=== PATIENT | male | born 1970 | race Asian ===

== ENCOUNTER 2019-10-08 06:27 | Inpatient (IN) | payer SELFPAY ==
[2019-10-08] VITALS (17 sets, daily range): BP systolic 92–132; BP diastolic 57–95; PULSE 60–82; RESP 12–17; TEMP 36.3–36.8; O2SAT 97–99; BMI 20.6
--- NOTE | ~2019-10-08 | XR_ITS ---
EXAMINATION: XR chest 1V portable 10/08/2019 07:38 INDICATION: Syncope. Possible seizure. PROCEDURE: AP portable chest COMPARISON: No prior studies for comparison. FINDINGS: The lungs are clear. The cardiomediastinal silhouette is within normal limits. There are no pleural effusions. There is no pneumothorax suspected. IMPRESSION: 1: NO ACUTE CARDIOPULMONARY DISEASE. Reviewed, dictated and finalized at location A.
--- NOTE | ~2019-10-08 | CT_ITS ---
EXAMINATION: CT BRAIN W/O DATE: 10/08/2019 09:31 INDICATION: Headache. Syncope. TECHNIQUE: Computed tomography (CT) of the head was performed without intravenous contrast. The dose- length product was 605.33 mGy-cm. Automated exposure control and iterative reconstruction technique w ere employed. COMPARISON: No prior studies for comparison. FINDINGS: Normal brain parenchymal volume for age. Normal garcia-white differentiation. No acute intrac ranial hemorrhage, infarction, mass or mass effect. No ventriculomegaly or midline shift. Midline sagittal images demonstrate a normal corpus callosum, c raniovertebral junction and sella turcica. Basilar cisterns are patent. Paranasal sinuses and mastoids are pneumatized. No depressed skull fractures. IMPRESSION: 1. No acute intracranial abnormality. Reviewed, dictated and finalized at location A.
--- NOTE | ~2019-10-08 | US_ITS ---
EXAMINATION: US carotid duplex BI DATE: 10/08/2019 11:52 INDICATION: Syncope. Evaluate for carotid stenosis. TECHNIQUE: Grayscale, color Doppler, and pulsed Doppler images of the cervical carotid arteries were obtained. The degree of vessel stenosis is placed in one of the following categories: normal, <50%, 5 0-69%, >=70% but less than near-occlusion, near-occlusion, or total occlusion. Note that percent sten osis relative to normal distal artery lumen diameter is indirectly measured from velocity measurement s as described by Ralph, et al. Radiology 2003; 229:340-346. Notes: Normal: Peak systolic velocity <125 centimeters/sec and no plaque <50%. Peak systolic velocity <125 ( EDV <40; ICA/CCA PSV ratio <2.0; used these factors only a tandem lesions or low cardiac output or co ntralateral disease) 50-69 %: PSV 125-230 (EDV 40-100; ratio 2-4) >= 70% but less than near occlusion: PSV greater than 230 (EDV > 100; ratio> 4.0) Near Occlusion: PSV that is variable; markedly narrowed lumen Occlusion: Absent flow on color/spectral Doppler and no lumen on garcia scale. COMPARISON: None. FINDINGS: RIGHT: The right common carotid artery (CCA) peak systolic velocity (PSV) is 79 cm/s. The right internal car otid artery (ICA) PSV is 74 cm/s. The right ICA end-diastolic velocity (EDV) is 27 cm/s. The right IC A/CCA PSV ratio is 0.9. The external carotid artery (ECA) PSV is 71 cm/s. There is antegrade flow in the right vertebral artery. LEFT: The left CCA PSV is 99 cm/s. The left ICA PSV is 60 cm/s. The left ICA EDV is 23 cm/s. The left ICA/C CA PSV ratio is 0.6. The ECA PSV is 77 cm/s. There is antegrade flow in the left vertebral artery. IMPRESSION: 1. Less than 50% stenosis in the right internal carotid artery by sonographic criteria. 2. Less than 50% stenosis in the left internal carotid artery by sonographic criteria. Reviewed, dictated and finalized at location A. IMPRESSION: 1. Less than 50% stenosis in the right internal carotid artery by sonographic c obed. 2. Less than 50% stenosis in the left internal carotid artery by sonographic ophelia smalls.
--- NOTE | ~2019-10-08 | MR_ITS ---
EXAMINATION: MR brain/brain stem wo/w con DATE: 10/09/2019 11:44 CDT INDICATION: Focal seizure. Recent syncope. Headache. TECHNIQUE: Magnetic resonance imaging (MRI) of the brain and brainstem was performed without intraven ous contrast. Sequences included sagittal and axial T1-weighted SE, axial diffusion-weighted FS SE, a xial T2*-weighted GRE, axial T2-weighted FLAIR Propeller, and axial T2-weighted Propeller. Apparent d iffusion coefficient (ADC) maps were created. COMPARISON: CT dated 10/08/2019 FINDINGS: The brain volume and ventricular system are within normal limits. The brain parenchymal si gnal intensity pattern and garcia/white matter is normal and there is no evidence of hemorrhage, space occupying masses or infarctions. There are a few scattered areas of T2/FLAIR weighted signal hyperint ensity within the white matter, within normal limits for age. The flow signal voids of the major arterial structures about the [place] and within the rupinder r dural venous sinuses appear grossly unremarkable and patent. The seventh and eighth cranial nerve complexes are normal. The mid sagittal image demonstrates a normal craniovertebral junction and rhoda us callosum. The paranasal sinuses are grossly unremarkable. No abnormal contrast enhancement was appreciated. IMPRESSION: 1: No acute intracranial abnormality. Reviewed, dictated and finalized at location A.
--- NOTE | 2019-10-08 07:25 | ECG_ITS ---
Measurements Intervals [place] Rate: 73 P: 82 HI: 164 QRS: 88 QRSD: 93 T: 59 QT: 414 QTc: 457 Interpretive Statements SINUS RHYTHM POSSIBLE LEFT ATRIAL ENLARGEMENT BASELINE WANDER- I, II BORDERLINE ECG Electronically Signed On 10-08-2019 13:10:20 CDT by Tonny Cobos D.O.
--- NOTE | 2019-10-08 07:31 | ED.GENADULT ---
HPI - General Adult General Chief complaint: Seizure Stated complaint: poss seizure Time Seen by Provider: 10/08/19 06:58 Source: EMS Limitations: language barrier (used video contact lens blocker and cutter for rose) History of Present Illness HPI narrative: This patient is a 49 yo Armenian male who presents via EMS for evaluation of syncopal episode. PAtient is alone in room . He states that he is here because he developed dizziness while he was smoking a cigarette and then he passed out. He reports mild frontal headache since his episodes. He denies any similar episodes in the past. He was just discharged from [facility] this morning after an evaluation of memory loss x 1 week. He had labs and MRI of brain performed, and he states he was told everything was fine except high blood sugar. He states he was told that his memory loss is due to his blood sugar. He was discharged with prescription of glyburide . He denies chest pain, sob, cough, abdominal pain. Related Data Home Medications Medication Instructions Recorded Confirmed No Home Medications 10/08/19 10/08/19 Allergies Allergy/AdvReac Type Severity Reaction Status Date / Time No Known Allergies Allergy Verified 10/08/19 07:08 Review of Systems Review of Systems: All systems reviewed & are unremarkable except as noted in HPI and below Constitutional: Constitutional: Denies chills and Denies fever(s) Eyes: Eyes: Denies change in vision ENT: Reports dizziness Cardiovascular: Cardiovascular: Denies chest pain and Denies radiating jaw, neck or arm pain Respiratory: Respiratory: Denies cough and Denies dyspnea Gastrointestinal: Gastrointestinal: Denies abdominal pain and Denies nausea Neurologic: Reports syncope, Reports headache(s) and Reports focal weakness [facility] Past Medical History Medical History (Updated 10/08/19 @ 19:18 by Tianna Francois MD) Discoid lupus Tobacco dependence Type 2 diabetes mellitus Surgical History Surgical History (Updated 10/08/19 @ 07:36 by Tianna Francois MD) No pertinent past surgical history Social History Social History (Updated 10/08/19 @ 15:31 by Opal Ramirez PA-C) Social History: The patient lives in [place]. Smoking packs per day: 0.5 Smoking cigarettes per day: 10.0 Smoking status: Light tobacco smoker Tobacco type: cigarettes Second hand tobacco smoke exposure: No Additional smoking assessment comments: UNABLE TO TELL HOW LONG PT HAS BEEN SMOKING Alcohol intake: never Substance use: never Spiritual care concerns: No Exam Narrative: Exam Narrative: GENERAL: Well-appearing, well-nourished, and in no acute distress. HEAD: Normocephalic, atraumatic EYES: PERRLA and EOMI, conjunctiva clear without discharge EARS: TM's clear bilaterally without erythema or dullness NOSE: Nares clear, no rhinorrhea or epistaxis THROAT:Mucous membranes moist, Oropharynx normal without erythema, exudate, peritonsillar swelling or fluctuance NECK: Supple, without lymphadenopathy or mass RESPIRATORY: No respiratory distress, Airway patent, Respirations non-labored, Clear to auscultation without rales, rhonchi or wheeze HEART: Regular rate and rhythm. No murmur heard. Normal peripheral pulses. ABDOMEN: Soft, nontender, nondistended, normal active bowel sounds. No masses. No rebound or guarding, No organomegaly. EXTREMITIES: No edema, normal strength with full range of motion. SKIN: Warm, dry, normal color without rash NEURO: Alert and oriented x3. CN 2-12 grossly intact. No focal deficits. PSYCH: Normal mood and affect. Course Reevaluation(s) Reevaluation #1: the nurse and I atempted to ambulate patient, when he stood up and appeared confused. His right arm was reaching and twitching. This resolved after he laid down. Date: 10/08/19 Time: 10:57 Consultations Consultation #1: I Discussed case with Dr. Banda of hospitalist service who accepts patient. He is agreeable with giving patie
[2019-10-08] MEDS: LACTATED RINGERS 1,000 ML 999 ML IV CONT ×2 (07:44→10:02)
[2019-10-08 07:47] LABS: Basophils Percent Auto 0.4 % (0.2-1.2); Eosinophils Percent Auto 0.2 % (0-4.4); Hematocrit 43.7 % (42.0-52.0); Hemoglobin 14.9 g/dL (14.0-18.0); Immature Granulocyte Absolute 0.03 K/mm3 (0.00-0.031); Immature Granulocyte Percent A 0.3 % (0-0.5); Lymphocytes Absolute Auto 1.65 K/mm3 (0.9-3.2); Mean Corpuscular HGB Conc 34.1 g/dl (32-36); Mean Corpuscular Hemoglobin 30.5 pg (26-34); Mean Corpuscular Volume 89.4 fl (80-100); Mean Platelet Volume 12.1 fl (7.4-10.4); Monocytes Absolute Auto 0.5 K/mm3 (0.1-0.6); Monocytes Percent Auto 4.6 % (2.6-8.5); Neutrophils Absolute Auto 8.1 K/mm3 (1.3-6.7); Neutrophils Percent Auto 78.5 % (45.5-73.1); Platelet Count Result 158 k/mm3 (150-375); Red Blood Count 4.89 M/mm3 (4.6-6.20); Red Cell Distribution Width 11.8 % (11.5-14.5); White Blood Count 10.3 K/mm3 (4.5-10.0)
[2019-10-08 07:52] LABS: Glucose Point of Care 477 (65-105)
[2019-10-08 07:57] LABS: INR 0.9; Prothrombin Time 12.2 Seconds (11.1-14.7)
[2019-10-08 07:58] LABS: Partial Thromboplastin Time 24.7 SECONDS (22.3-36.8)
--- NOTE | 2019-10-08 08:00 | PC.NURSE ---
Faxed [facility] medical records at this time. Awaiting fax of results from 10/07/2019 visit.
[2019-10-08 08:01] LABS: D Dimer 0.33 ug/mL (<0.48)
[2019-10-08 08:04] LABS: Ethanol < 10 mg/dL (<10)
[2019-10-08 08:05] LABS: Alanine Aminotransferase 35 U/L (4-50); Alkaline Phosphatase 105 U/L (38-126); Aspartate Amino Transferase 27 U/L (17-59); Bilirubin,Total 0.9 mg/dL (0.2-1.3); Blood Urea Nitrogen 15 mg/dL (9-20); Calcium 8.9 mg/dL (8.4-10.2); Carbon Dioxide 27 mmol/L (22-30); Chloride 99 mmol/L (98-107); Estimated Glomerular Filt Rate > 60; Glucose 547 mg/dL (75-110); Magnesium 1.9 mg/dL (1.6-2.3); Potassium 5.1 mmol/L (3.4-5.0); Sodium 134 mmol/L (137-145)
[2019-10-08 08:15] LABS: Troponin I < 0.012 ng/mL (0.000-0.034)
[2019-10-08] MEDS: INSULIN HUMAN REGULAR (*BKC) 100 UNITS/ML IV PUSH (08:27)
[2019-10-08 08:42] LABS: Add Urine Microscopic? YES; Appearance Urine Clear (Clear); Bacteria Urine Trace /hpf; Bilirubin Urine Negative (Negative); Blood Urine Negative (Negative); Color Urine Yellow (Yellow); Glucose Urine UA 3+ mg/dL (Negative); Ketones Urine 1+ mg/dL (Negative); Leukocyte Esterase Ur Negative LEU/UL (Negative); Mucus Urine Rare /lpf; Nitrate Urine Negative (Negative); Protein Urine Negative (Negative); RBC Urine 0-2 /hpf (0-2); Specific Grav Ur 1.031 (1.001-1.035); Urobilinogen Urine Negative mg/dL (<2.0); WBC Urine 0-3 /hpf
[2019-10-08 08:43] LABS: Amphetamine Screen Urine Negative (Negative); Barbiturate Screen Urine Negative (Negative); Benzodiazepines Screen Urine Negative (Negative); Cannabinoid Screen Urine Negative (Negative); Cocaine Screen Urine Negative (Negative); Methadone Screen Urine Negative (Negative); Opiate Screen Urine Negative (Negative); Phencyclidine Screen Urine Negative (Negative)
[2019-10-08 09:51] LABS: Glucose Point of Care 438 (65-105)
[2019-10-08] MEDS: glyBURIDE 5 MG TABLET PO (10:10)
--- NOTE | 2019-10-08 11:02 | PC.NURSE ---
Attempted ambulation assessment at this time, patient unsuccessful.
[2019-10-08 11:09] LABS: Glucose Point of Care 362 (65-105)
[2019-10-08] MEDS: levETIRAcetam 500MG/NACL 100ML 500 MG/100 ML BAG 400 MG IVPB ×2 (11:28→20:44)
[2019-10-08] MEDS: SODIUM CHLORIDE 0.9% IV 500 ML IV CONT (14:00)
[2019-10-08 17:03] LABS: Blood Urea Nitrogen 13 mg/dL (9-20); Calcium 8.4 mg/dL (8.4-10.2); Carbon Dioxide 26 mmol/L (22-30); Chloride 106 mmol/L (98-107); Estimated CRCL calculation 120 ml/min; Estimated Glomerular Filt Rate > 60; Glucose 235 mg/dL (75-110); Sodium 138 mmol/L (137-145)
--- NOTE | 2019-10-08 17:03 | WPDNEURCNPN ---
Assessment and Plan Assessment and plan (1) Type 2 diabetes mellitus with hyperglycemia: Code(s): E11.65 - Type 2 diabetes mellitus with hyperglycemia Status: Acute (2) Syncope: Code(s): R55 - Syncope and collapse Status: Acute (3) Focal seizure: Code(s): R56.9 - Unspecified convulsions Status: Acute (4) Tobacco dependence: Code(s): F17.200 - Nicotine dependence, unspecified, uncomplicated Status: Acute (5) Discoid lupus: Code(s): L93.0 - Discoid lupus erythematosus Status: Acute (6) Medical non-compliance: Code(s): Z91.19 - Patient's noncompliance with other medical treatment and regimen Status: Acute Additional Plan I will not discharge the patient will check an MITALI CRP and sed rate I will reorder the [place] brain MRI with and without contrast to make sure he did not bleed into the developmental venous anomaly and is it causing him to have focal seizure and right-sided weakness he has certainly 3 reasons to have seizures 1. Hyperglycemia 2. History of lupus if remotely it is affecting the central nervous system with the memory loss and of course the presence of the developmental venous anomaly I will continue his Keppra for right now and see how does not look like tomorrow once the brain MRIs done Consult date: 10/08/19 Time Seen: 16:30 HPI: Mary Herrera is a 49 year old male From [facility] who has been in this country [place] and according to the [place] records he was diagnosed to have DIS quite lupus was supposed to be on a Plaquenil and also MMF and most likely supposed to be on some anti diabetic medication however I suspect he did not take any of those most likely due to no insurance in any event he was admitted to [place] initially because of fogginess memory loss headache have with elevated sugars a 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 however no evidence of stroke the patient wants to go home at this time denies any headache denies any lateralizing weakness however groggy and sleepy but arousable Review of Systems Review of Systems: All systems reviewed & are unremarkable except as noted in HPI and below PMFSH Past Medical History Medical History (Updated 10/08/19 @ 17:07 by Dwaine Farfan MD) Discoid lupus Tobacco dependence Type 2 diabetes mellitus Surgical History Surgical History (Updated 10/08/19 @ 07:36 by Tianna Francois MD) No pertinent past surgical history Social History Social History (Updated 10/08/19 @ 15:31 by Opal Ramirez PA-C) Social History: The patient lives in [place]. Smoking packs per day: 0.5 Smoking cigarettes per day: 10.0 Smoking status: Light tobacco smoker Tobacco type: cigarettes Second hand tobacco smoke exposure: No Additional smoking assessment comments: UNABLE TO TELL HOW LONG PT HAS BEEN SMOKING Alcohol intake: never Substance use: never Spiritual care concerns: No Meds Home Medications and Allergies Home Medications Medication Instructions Recorded Confirmed Type No Home Medications 10/08/19 10/08/19 History Allergies Allergy/AdvReac Type Severity Reaction Status Date / Time No Known Allergies Allergy Verified 10/08/19 07:08 Vital Signs Vital Signs - 24 hr 10/08/19 06:26 10/08/19 06:42 10/08/19 07:14 Temperature 36.3 C L Pulse Rate 82 76 81 Respiratory Rate 13 16 Blood Pressure 132/80 126/86 Pulse Oximetry 97 97 10/08/19 07:51 10/08/19 07:52 10/08/19 08:21 Temperature Pulse Rate 78 82 78 Respiratory Rate 16 Blood Pressure 107/80 106/85 114/70 Pulse Oximetry 97 10/08/19 09:38 10/08/19 10:16 10/08/19 11:01 Temperature Pulse Rate 71 69 70 Respiratory Rate 13 17 12 Blood Pressure 117/95 H 104/78 110/69 Pulse Oximetry 98 99 99 10/08/19 11:30 10/08/19 12:04 10/08/19 13:00 Temperature 36.5 C Pulse Rate 67 68 68 Respiratory Rate 14 14 12 Blood Pressure 92/61 L 97/67 L
[2019-10-08 17:37] LABS: CRP 0.6 mg/dL (<1.0)
[2019-10-08 17:51] LABS: Glucose Point of Care 205 (65-105)
[2019-10-08 17:58] LABS: Erythrocyte Sedimentation Rate 18 mm/hr (0-20)
[2019-10-08] MEDS: SODIUM CHLORIDE 0.9% IV 500 ML 999 ML (18:04)
[2019-10-08 18:12] LABS: Thyroid Stimulating Hormone Reflex 0.822 uIU/mL (0.465-4.68)
[2019-10-08 19:24] LABS: Hemoglobin A1C > 14.0 % (<5.7)
[2019-10-08 19:57] LABS: Folic Acid 10.5 ng/mL (2.76->20)
--- NOTE | 2019-10-08 21:00 | PM.IMHP ---
H&P: HPI History of Present Illness Chief complaint: Syncope, possible seizure. Narrative: Mary Herrera is a 49-year-old left-handed male smoker, recently diagnosed with type 2 diabetes mellitus, who presented to the emergency department earlier today via EMS from home for evaluation of syncope and possible seizure. He was just discharged from [facility] this morning, after he was initially admitted yesterday after he came in complaining of right side paresthesias and memory problems. According to the patient, his workup was normal and it was thought that his symptoms were likely due to severe hyperglycemia with glucose is > 500. Brain CT and brain MRI were unremarkable. He has yet to fill the medications he was discharged home with. In any regard, not long prior to arrival he was sitting down smoking when he began feeling lightheaded/dizzy when leaning forward, he apparently had a syncopal episode. There is also some concern that he may have had a seizure, and in fact in the emergency department when the ED staff got him up to ambulate, the patient began having what they describe as a focal seizure of the right upper extremity. It is in this setting that he is being admitted. At the time my evaluation, the only complaint he has is of the need to urinate. He goes on to state that for the past month and half or so he has had polydipsia and polyuria as well as a 15 pound weight loss. He also describes what sounds to me like paresthesias of the fingers, that may be causing some of the symptoms as detailed above. He continues to have intermittent blurry vision, presumably due to the hyperglycemia. He denies focal weakness. No chest pain, palpitations, or history of atrial fibrillation. He has no history of seizure. His appetite has been as per usual. He has not had nausea, vomiting, or diarrhea. No dysuria. He denies head trauma. He does not use alcohol in any significant quantities. Review of Systems Review of Systems: Narrative: Twelve systems were reviewed with pertinent positives and negatives as per HPI. Except as documented, all other systems were reviewed and are negative. [facility] Past Medical History Medical History (Updated 10/08/19 @ 22:23 by Opal Ramirez PA-C) Discoid lupus erythematosus Tobacco dependence Type 2 diabetes mellitus Surgical History Surgical History No pertinent past surgical history Family History Family History (Updated 10/08/19 @ 22:16 by Opal Ramirez PA-C) Mother Hypertension Father Cerebrovascular accident Social History Social History (Updated 10/08/19 @ 22:17 by Opal Ramirez PA-C) Social History: The patient lives in [place] with his and children. He is from [place] but [place]. He is a copy room technician. He has smoked about half a pack of cigarettes per day for the last 15 years or so. He denies alcohol and drug abuse. He designates his as his surrogate decision maker and he wishes to be a full code. Smoking packs per day: 0.5 Smoking cigarettes per day: 10.0 Tobacco type: cigarettes Spiritual care concerns: No Meds Home Medications and Allergies Home Medications Medication Instructions Recorded Confirmed Type No Home Medications 10/08/19 10/08/19 History Allergies Allergy/AdvReac Type Severity Reaction Status Date / Time No Known Allergies Allergy Verified 10/08/19 07:08 Vital Signs Vital Signs - 24 hr 10/08/19 06:26 10/08/19 06:42 10/08/19 07:14 Temperature 97.3 F L Pulse Rate 82 76 81 Respiratory Rate 13 16 Blood Pressure 132/80 126/86 Pulse Oximetry 97 97 10/08/19 07:51 10/08/19 07:52 10/08/19 08:21 Temperature Pulse Rate 78 82 78 Respiratory Rate 16 Blood Pressure 107/80 106/85 114/70 Pulse Oximetry 97 10/08/19 09:38 10/08/19 10:16 10/08/19 11:01 Temperature Pulse Rate 71 69 70 Respirat
[2019-10-08 21:53] LABS: Glucose Point of Care 312 (65-105)
[2019-10-08] MEDS: SODIUM CHLORIDE 0.9% IV 1,000 ML 100 ML IV CONT (23:09)
[2019-10-09] VITALS (11 sets, daily range): BP systolic 82–120; BP diastolic 51–81; PULSE 57–68; RESP 16–18; TEMP 36.6–37.1; O2SAT 95–99
[2019-10-09 00:34] LABS: Glucose Point of Care 396 (65-105)
[2019-10-09] MEDS: INSULIN ASPART (*BKC) 100 UNITS/ML 6 UNITS SUB-Q (00:52)
[2019-10-09] MEDS: INSULIN GLARGINE (*BKC) 100 UNITS/ML 10 UNITS SUB-Q (00:52)
[2019-10-09 06:15] LABS: Hematocrit 37.9 % (42.0-52.0); Hemoglobin 12.8 g/dL (14.0-18.0); Mean Corpuscular HGB Conc 33.8 g/dl (32-36); Mean Corpuscular Hemoglobin 30.8 pg (26-34); Mean Corpuscular Volume 91.1 fl (80-100); Platelet Count Result 159 k/mm3 (150-375); Red Blood Count 4.16 M/mm3 (4.6-6.20); Red Cell Distribution Width 11.9 % (11.5-14.5); White Blood Count 8.9 K/mm3 (4.5-10.0)
[2019-10-09 06:31] LABS: Blood Urea Nitrogen 14 mg/dL (9-20); Calcium 8.1 mg/dL (8.4-10.2); Carbon Dioxide 26 mmol/L (22-30); Chloride 108 mmol/L (98-107); Estimated CRCL calculation 120 ml/min; Estimated Glomerular Filt Rate > 60; Glucose 204 mg/dL (75-110); Magnesium 1.9 mg/dL (1.6-2.3); Phosphorus 2.8 mg/dL (2.5-4.5); Potassium 3.7 mmol/L (3.4-5.0); Sodium 137 mmol/L (137-145)
[2019-10-09] MEDS: glyBURIDE 5 MG TABLET PO (08:49)
[2019-10-09] MEDS: INSULIN ASPART (*BKC) 100 UNITS/ML SUB-Q ×2 (08:49→12:20)
[2019-10-09] MEDS: levETIRAcetam 500 MG TABLET PO (08:49)
[2019-10-09] MEDS: metFORMIN HCL 500 MG TABLET PO (08:49)
[2019-10-09 09:10] LABS: Immature Reticulocyte Fraction 3.2 % (3.0-15.9); Reticulocyte Hemoglobin Conten 34.5 pg (28.2-35.7); Reticulocyte Percent 1.35 % (0.7-4.3); Reticulocytes Absolute 0.06 B/L (32.2-175.7)
--- NOTE | 2019-10-09 09:19 | PC.NURSE ---
This patient, Mary Herrera, was admitted to [facility] Surg Room 315-01. Patient/family oriented to hospital policies and general routines including ID bracelet, bed and alarms, visiting hours, pain management, procedures, bathroom and other care routines, personal items, smoking policy, room service/diet, and visiting hours. Valuables list has been completed. Information on how to activate the Rapid Response Team has been discussed. Patient/Family are encouraged to report perceived risks to care and to ask questions if they do not understand what they are told or what they should do. PT WAS ADMITTED ON 10/08/19 AT 1300
[2019-10-09 10:08] LABS: Iron 43 ug/dL (49-181)
[2019-10-09 10:17] LABS: Percent Iron Saturation 20 % (20-50)
--- NOTE | 2019-10-09 11:36 | PM.DS ---
DS: Diagnosis Admitting Diagnosis Admitting Diagnosis: Type 2 diabetes mellitus with hyperglycemia DS: Summary Time Spent with Patient Time attestation: Total time spent providing and/or coordinating discharge services: DS: Data Data Completed and Pending Labs on day of discharge: Labs from last 24 hours 10/09/19 10/09/19 10/09/19 09:05 09:05 09:05 WBC RBC Hgb Hct MCV MCH MCHC RDW Plt Count MPV ESR Absolute Retic 0.06 L Percent Retic 1.35 Immature Retic Fraction 3.2 Retic Hgb Content 34.5 Sodium Potassium Chloride Carbon Dioxide BUN Creatinine Estim Creat Clear Calc Estimated GFR Glucose POC Capillary Glucose Hemoglobin A1c Calcium Phosphorus Magnesium Iron 43 L TIBC 213 L % Saturation 20 C-Reactive Protein Vitamin B12 Folate TSH (Reflex) Random Cortisol 15.30 MITALI Screen 10/09/19 10/09/19 10/09/19 05:45 05:45 00:32 WBC 8.9 RBC 4.16 L Hgb 12.8 L Hct 37.9 L MCV 91.1 MCH 30.8 MCHC 33.8 RDW 11.9 Plt Count 159 MPV 12.0 H ESR Absolute Retic Percent Retic Immature Retic Fraction Retic Hgb Content Sodium 137 Potassium 3.7 Chloride 108 H Carbon Dioxide 26 BUN 14 Creatinine 0.50 L Estim Creat Clear Calc 120 Estimated GFR > 60 Glucose 204 H POC Capillary Glucose 396 H Hemoglobin A1c Calcium 8.1 L Phosphorus 2.8 Magnesium 1.9 Iron TIBC % Saturation C-Reactive Protein Vitamin B12 Folate TSH (Reflex) Random Cortisol MITALI Screen 10/08/19 10/08/19 10/08/19 21:50 18:52 17:45 WBC RBC Hgb Hct MCV MCH MCHC RDW Plt Count MPV ESR Absolute Retic Percent Retic Immature Retic Fraction Retic Hgb Content Sodium Potassium Chloride Carbon Dioxide BUN Creatinine Estim Creat Clear Calc Estimated GFR Glucose POC Capillary Glucose 312 H 205 H Hemoglobin A1c Calcium Phosphorus Magnesium Iron TIBC % Saturation C-Reactive Protein Vitamin B12 Folate TSH (Reflex) Random Cortisol MITALI Screen Pending 10/08/19 10/08/19 10/08/19 16:34 16:34 16:34 WBC RBC Hgb Hct MCV MCH MCHC RDW Plt Count MPV ESR Absolute Retic Percent Retic Immature Retic Fraction Retic Hgb Content Sodium 138 Potassium 4.0 Chloride 106 Carbon Dioxide 26 BUN 13 Creatinine 0.50 L Estim Creat Clear Calc 120 Estimated GFR > 60 Glucose 235 H POC Capillary Glucose Hemoglobin A1c Calcium 8.4 Phosphorus Magnesium Iron TIBC % Saturation C-Reactive Protein Vitamin B12 923.0 Folate 10.5 TSH (Reflex) 0.822 Random Cortisol MITALI Screen 10/08/19 10/08/19 10/08/19 16:34 16:27 07:40 WBC RBC Hgb Hct MCV MCH MCHC RDW Plt Count MPV ESR 18 Absolute Retic Percent Retic Immature Retic Fraction Retic Hgb Content Sodium Potassium Chloride Carbon Dioxide BUN Creatinine Estim Creat Clear Calc Estimated GFR Glucose POC Capillary Glucose Hemoglobin A1c > 14.0 H Calcium Phosphorus Magnesium Iron TIBC % Saturation C-Reactive Protein 0.6 Vitamin B12 Folate TSH (Reflex) Random Cortisol MITALI Screen Discharge Plan Discharge Consulting providers: Dwaine Farfan Patient Instructions: How to Stop Smoking (GEN), Cigarette Smoking and Your Health (GEN), Smoke Inhalation (GEN) Discharge Medications: No Action No Home Medications RF: 0 Date of admission: 10/08/19 11:21 Primary Care Provider: UNKNOWN,DOCTOR Admitting Provider: Santiago Banda Attending physician on admission: Santiago Banda
[2019-10-09 12:41] LABS: Glucose Point of Care 288 (65-105)
--- NOTE | 2019-10-09 13:46 | PM.DS ---
DS: Diagnosis Admitting Diagnosis Admitting Diagnosis: Type 2 diabetes mellitus with hyperglycemia Discharge Diagnosis (1) Focal seizure: Code(s): R56.9 - Unspecified convulsions Status: Acute Assessment and Plan: Patient was reported to have had a focal seizure in the emergency department as detailed in the HPI. He was loaded with Keppra in the emergency department and for now, we will start 500 milligrams p.o. b.i.d. Neurology consulted, and their input is appreciated. EEG ordered for a.m. Initiate fall and seizure precautions. (2) Syncope: Code(s): R55 - Syncope and collapse Status: Acute Assessment and Plan: Patient reportedly had a syncopal episode while sitting down, smoking a cigarette. Will monitor on telemetry overnight to rule out cardiac dysrhythmia. Check orthostatic vital signs as his blood pressures have been a bit soft. Carotid Doppler ultrasound showed < 50% stenosis in bilateral internal carotid arteries. (3) Tobacco dependence: Code(s): F17.200 - Nicotine dependence, unspecified, uncomplicated Status: Acute Assessment and Plan: Smoking cessation is imperative and is encouraged. (4) Type 2 diabetes mellitus with hyperglycemia: Qualifiers: Diabetes mellitus medical terminologist insulin use: without medical terminologist use Qualified Code(s): E11.65 - Type 2 diabetes mellitus with hyperglycemia Code(s): E11.65 - Type 2 diabetes mellitus with hyperglycemia Status: Acute Assessment and Plan: Diagnosed just this past week, and he has yet to get his medications filled. Initiate sliding scale insulin, Accu-Cheks, and hypoglycemic protocol. Records requested from Karen for review, so these medications can be restarted. Check hemoglobin A1c. (5) Discoid lupus erythematosus: Code(s): L93.0 - Discoid lupus erythematosus Status: Acute Assessment and Plan: Patient reportedly is on CellCept and Plaquenil. DS: Summary Hospital Course Reason for hospitalization: syncope Hospital Course: 49-year-old left-handed male smoker, recently diagnosed with type 2 diabetes mellitus, who presented to the emergency department earlier today via EMS from home for evaluation of syncope and possible seizure. He was just discharged from [facility] a few hours prior to admission to [facility] 10/07. After he was initially admitted yesterday after he came in complaining of right side paresthesias and memory problems. According to the patient, his workup was normal and it was thought that his symptoms were likely due to severe hyperglycemia with glucose is > 500. Brain CT and brain MRI were unremarkable. He has yet to fill the medications he was discharged home with. In any regard, not long prior to arrival he was sitting down smoking when he began feeling lightheaded/dizzy when leaning forward, he apparently had a syncopal episode. There is also some concern that he may have had a seizure, and in fact in the emergency department when the ED staff got him up to ambulate, the patient began having what they describe as a focal seizure of the right upper extremity. He was given a loading dose of Keppra 500 mg the emergency department. He had no further spells. Blood sugars improved from initial 547 to 288 just prior to discharge. He had no hypoglycemia. Tolerated diet. Required IV saline due to soft blood pressures in the 90s to 80s while standing. Was not orthostatic by time of discharge. He received teaching on diabetic diet and use of glucometer while hospitalized. He was given basal and sliding scale insulin overnight and transition to metformin and glyburide on day of discharge. Sta
--- NOTE | 2019-10-14 13:57 | PC.NURSE ---
Received call from 3 MS nurse stating that patients BS is running >400. Patient is not able to get into see his new PCP for quite awhile. Spoke with Dr. Banda regarding patient's BS. Received orders to increase Metformin to 1000 mg BID and add Relion MDH 10 units at breakfast and supper. Called meds into [facility]. Called and spoke with son regarding change in meds and adding of insulin. States understanding and agreement.
== END 2019-10-09 15:30 | disposition home or self-care (01) | DRG 420 ==
LOC: ANHED 11:25 → ANH3MEDSUR 11:49
PROVIDERS: Physician Assistant; Psychiatry & Neurology Neurology; Admitting Provider Internal Medicine; Emergency Provider General Practice; Visit Provider Internal Medicine
DX: E11.65 Type 2 diabetes mellitus with hyperglycemia (principal); R56.9 Unspecified convulsions; F17.200 Nicotine dependence, unspecified, uncomplicated; F17.210 Nicotine dependence, cigarettes, uncomplicated; L93.0 Discoid lupus erythematosus; Z91.19 Patient's noncompliance with other medical treatment and regimen
CPT/HCPCS: 36415; 70450; 70553; 71045; 80048; 80053; 80307; 81001; 82533; 82607; 82746; 82948; 83036; 83540; 83550; 83735; 84100; 84443; 84484; 85025; 85027; 85046; 85380; 85610; 85652; 85730; 86038; 86140; 93005; 93880; 96361; 96375; 96376; 99285; A9270; A9577; J1815; J1953; J7030; J7040; J7120